=== PATIENT | female | born 1955 | race Caucasian/White ===

== ENCOUNTER 2016-07-28 08:39 | Emergency (ER) | payer SELFPAY ==
[2016-07-28 08:48] VITALS: TEMP 98.9; O2SAT 98
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
[2016-07-28 11:47] VITALS: BP 135/84; PULSE 74; RESP 16
--- NOTE | 2016-07-28 15:25 | RAD ---
PROCEDURE: Right Foot Radiographs. HISTORY: [facility] COMPARISON: None. FINDINGS: BONES: Transverse nondisplaced fracture base of 5th metatarsal. No other fracture. JOINTS: Normal. SOFT TISSUES: Normal. OTHER FINDINGS: Pes planus deformity IMPRESSION: Nondisplaced transverse fracture at the base of the 5th metatarsal.
--- NOTE | 2016-07-28 15:34 | RAD ---
PROCEDURE: Left Hip X-ray Radiographs. HISTORY: [facility] COMPARISON: None. FINDINGS: BONES: Normal. No fracture. JOINTS: Normal. SOFT TISSUES: Coarse central pelvic calcifications consistent with calcified uterine fibroid. OTHER FINDINGS: None. IMPRESSION: No acute fracture.
== END 2016-07-28 11:45 | disposition home or self-care (01) ==
LOC: C.ER 08:39
DX: S92.354A Nondisplaced fracture of fifth metatarsal bone, right foot, initial encounter for closed fracture (principal); S70.02XA Contusion of left hip, initial encounter; V03.10XA Pedestrian on foot injured in collision with car, pick-up truck or van in traffic accident, initial encounter; Y92.410 Unspecified street and highway as the place of occurrence of the external cause